=== PATIENT | female | born 1955 | race Caucasian/White ===

== ENCOUNTER 2024-12-09 13:33 | Emergency (ER) | payer MEDICARE, OTHER, SELFPAY ==
--- NOTE | 2024-12-09 13:42 | XRR_ITS ---
PROCEDURE INFORMATION: Exam: XR Right Foot Exam date and time: 12/09/2024 2:22 PM Age: 69 years old Clinical indication: Injury or trauma; Other: Not specified; Blunt trauma; Foot; Right TECHNIQUE: Imaging protocol: Radiologic exam of the right foot. Views: 3 or more views. COMPARISON: No relevant prior studies available. FINDINGS: Bones/joints: Acute minimally comminuted and slightly displaced 5th metatarsal distal diaphyseal fracture. Subacute to chronic healed fracture deformity through the base of the 5th metatarsal. Soft tissues: Mild lateral forefoot soft tissue swelling. XR/XR foot RT min 3V* [id number] IMPRESSION: Acute minimally comminuted and slightly displaced 5th metatarsal distal diaphyseal fracture.
[2024-12-09 13:49] VITALS: BP 130/71; PULSE 75; RESP 17; TEMP 36.8; O2SAT 96; BMI 19.8
--- NOTE | 2024-12-09 14:13 | W.ED.EXTPRO ---
HPI - Extremity Problem General: Chief complaint: Extremity Injury, Lower Stated complaint: R foot pain Time Seen by Provider: 12/09/24 14:11 Source: patient Mode of arrival: ambulatory Limitations: no limitations History of Present Illness: 69-year-old female who states that she had a boat axle fall on her right foot 2 hours ago. States she has pain over the lateral portion of her right foot where it hit her. Pain is worse with ambulation improved with rest denies any other injuries denies ankle pain she rates her pain a 7 on 10 currently Related Data Previous Rx's ?Medication ?Instructions ?Recorded hydrocodone 5 mg-acetaminophen 325 1 tab PO Q6H PRN pain #14 tabs 12/09/24 mg tablet Allergies Allergy/AdvReac Type Severity Reaction Status Date / Time No Known Allergies Allergy Verified 12/09/24 13:51 Review of Systems Musc: Reports: extremity pain Physical Exam Const: COMMON NORMALS: no acute distress, patient oriented x3 and healthy appearing HENMT: COMMON NORMALS: normocephalic and atraumatic HEAD & SCALP: normocephalic and atraumatic Eye: COMMON NORMALS: conjunctivae normal CONJUNCTIVA: Yes conjunctivae normal Neck/C-Spine: COMMON NORMALS: full ROM and supple Chest: COMMONS NORMALS: normal inspection of the chest Resp: COMMON NORMALS: normal respiratory effort Cardio: COMMON NORMALS: regular rate RATE: regular rate Extremity: COMMON NORMALS: full ROM NARRATIVE EXTREMITY EXAM: Tenderness over right lateral foot no obvious deformity Neuro: COMMON NORMALS: patient oriented x3, moves all extremities and no focal motor deficits Psych: COMMON NORMALS: mental status grossly normal, Normal thought process present and cooperative THOUGHT PROCESS: Normal thought process present Skin: COMMON NORMALS: no rashes or lesions noted and no wounds GENERAL SKIN EXAM: no rashes or lesions noted Course Vital Signs: Vital signs: Vital Signs Temperature 98.3 F 12/09/24 13:49 Pulse Rate 75 12/09/24 13:49 Respiratory Rate 17 12/09/24 13:49 Blood Pressure 130/71 12/09/24 13:49 Pulse Oximetry 96 12/09/24 13:49 Oxygen Delivery Me thod Room Air 12/09/24 13:49 MDM - Extremity (Nontraumatic) Medical Decision Making Patient presents here with fracture of the fifth metatarsal after having a boat axle dropped on her foot. I did interpret the x-ray myself it is pending final review of radiologist at this time but does show 1/[address] metat[address] fracture we will place her in a posterior short leg splint we will get her crutches she is to be nonweightbearing we will set follow-up with the chief dog license inspector Dr. Chakraborty will prescribe her pain meds for home she is stable for discharge at this time I did go over all this with her she understands agrees to plan Medical Records I reviewed the patient's medical records. XR interpretation done by ED provider, pending radiology final review ED provider radiology interpretation(s): X-ray right foot fifth metatarsal fracture Discharge Plan Discharge Patient Disposition: Home Clinical Impression: Closed fracture of fifth metatarsal bone Condition: Stable Prescriptions: New hydrocodone-acetaminophen 5-325 mg tablet 1 tab PO Q6H PRN (Reason: pain) Qty: 14 0RF Discharge Orders: Discharge ED (Routine); Ordered 12/09/24 Ordered By: Rissa Sage Referrals: De Quiroga MD [Primary Care Provider, Family Practice] Ricardo Chakraborty DPM [Physician, Podiatry] - 4-7 days Discharge Diet: Advance as tolerated Discharge Activity: Limit activity as instructed and Use walker/crutches as instructed Patient Instructions: Foot Fracture in Adults (ED), Opioid Safety Print Language: British Coding Level of Care Code ED Gumming Machine Operator for Lorenzo Parry
[2024-12-09] MEDS: HYDROcodone-acetaminophen 5-325 mg Tablet 1 TAB PO (14:20)
--- OUTSIDE RECORDS SUMMARY | 2024-12-09 14:30 | XMS_ITS | Encounter Summary ---
Author Organization [facility] Address [address] [place] [address] Care Team Providers Care Producer Arborist Manager Name Role Phone Unavailable Primary Care Provider Unavailabl e Encounter Details Date Type Department Care Team (Latest Contact Info) Description 11/24/[address] 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
--- OUTSIDE RECORDS SUMMARY | 2024-12-09 14:30 | XMS_ITS | Encounter Summary ---
Author Organization [facility] Address [address] [place] [address] Care Team Providers Care Process Mechanic Name Role Phone Unavailable Primary Care Provider Unavailabl e Encounter Details Date Type Department Care Team (Latest Contact Info) Description 10/20/2002 Outpatient Historical [facility] Medicine [address] [phone] Marika Gomez MD [address] [place] [phone] SPRAIN NOS (Primary Dx) Social History Tobacco Use Types Packs/Day Years Used Date Smoking Tobacco: Never Assessed Comments Unknown Sex and Gender Information Value Date Recorded Sex Assigned at Not on file 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
--- OUTSIDE RECORDS SUMMARY | 2024-12-09 14:30 | XMS_ITS | Clinical Summary ---
Author Organization [facility] Address [address] [place] [address] Phone Care Team Providers Care Machine Icer Name Role Phone Annita Saul MD Primary Care Provider Allergies Active Allergy Reactions Criticality Noted Date Comments Morphine Other 11/12/2001 Hypotension- think they gave me too much Medications alendronate (Fosamax) 70 mg tablet Take 70 mg by mouth every 7 (seven) days. On sundays 4 Active levothyroxine (Synthroid, Levoxyl) 50 mcg tablet Take 50 mcg by mouth 1 (one) time each day. 4 Active traZODone (Desyrel) 50 mg tablet Take 50 mg by mouth at night if needed for sleep. 4 Active sertraline (Zoloft) 50 mg tablet Take 50 mg by mouth 1 (one) time each day if needed (anxiety/depre ssion). 4 Active diclofenac (Voltaren) 1 % topical gel Apply 2 g topically 2 (two) times a day. 100 g 3 4 Active Active Problems Problem Noted Date Diagnosed Date Trigger finger, right index finger 2023 Trigger ring finger of right hand 2023 Right hand pain 2023 Family History Medical History Relation Comments Cancer Brother 1 Lung cancer Brother 1 Cancer Brother 2 Cancer Father Heart disease Father Lung cancer Father Cancer Mother Ovarian cancer Mother Diabetes Neg Hx Malig Hyperthermia Neg Hx Pseudochol deficiency Neg Hx Stroke Neg Hx Relation Status Comments Brother 1 Brother 2 Father Mother Social History Tobacco Use Types Packs/Day Years Used Date Smoking Tobacco: Never Smokeless Tobacco: Never Tobacco Cessation:Counseling Given: Not Answered Alcohol Use Standard Drinks/Week Comments Never 0 (1 standard drink = 0.6 oz pur e alcohol) PHQ-2 Answer Date Recorded Patient Health Questionnaire-2 Score 0 12/12/2023 [facility] - Mental Health Answer Date Recorde d Little interest or pleasure in doing things Not at all 12/12/2023 Feeling down, depressed, or hopeless Not at all 12/12/2023 Feeling of Stress Not on file 12/12/2023 Comments Unknown Sex and Gender Information Value Date Recorded Sex Assigned at Not on file Legal Sex Female 11:55 AM CDT Gender Identity Not on file Sexual Orientation Not on file Last Filed Vital Signs Vital Sign Reading Time Taken Comments Blood Pressure 129/73 12/12/2023 9:14 AM CDT Pulse 73 12/12/2023 9:14 AM CDT Temperature 36.6 C (97.8 F) 12/12/2023 9:14 AM CDT Respiratory Rate 15 10/30/2023 10:1 5 AM CDT Oxygen Saturation 95% 12/12/2023 9:14 AM CDT Inhaled Oxygen Concentration - - Weight 46.2 kg (101 lb 12.8 oz) 12/12/2023 9:14 AM CDT Height 149.9 cm (4' 11 ) 12/12/2023 9:14 AM CDT Body Mass Index 20.56 12/12/2023 9:14 AM CDT Plan of Treatment Health Maintenance Due Date Last Done Comments CT Colonography 1954 Colonoscopy 1954 Colorectal Cancer Screening 1954 FIT-DNA 1954 FIT 1954 FOBT 1954 Sigmoidoscopy 1954 MMR Vaccines (1 of 1 - Standard series) 10/19/1955 Varicella Vaccines (1 of 2 - 13+ 2-dose series) 10/19/1967 Social Drivers of Health (SDoH) 1972 DTaP,Tdap,and Td Vaccines (2 - Tdap) 07/20/1999 06/22/1999 Zoster Vaccines (1 of 2) 2004 Mammogram 05/20/2010 05/20/2009 Medicare Initial AWV [id number] 08/26/2024 Complete Fall Risk Assessment 09/11/2024 09/12/2023, 09/12/2023, 09/12/2023, Additional history exists COVID-19 Vaccine ( - 2023- season) 2024 Influenza Vaccine (#1) 2024 11/10/2021 Depression Screening 12/12/2024 12/12/2023 RSV Vaccines (1 - 1-dose 75+ series) 2029 Pneumococcal Vaccine: 50+ Years Completed 03/17/2022 Pneumococcal Vaccine Aged Out 03/17/2022 No long er eligible based on patient's age to complete this topic HIB Vaccines Aged Out No longer eligi ble based on patient's age to complete this topic HPV Vaccines Aged Out No longer eligi ble based on patient's age to complete this topic Hepatitis A Vaccines Aged Out No long er eligible based on patient's age to complete this topic Hepatitis B Vaccines Aged Out No long er eligible based on patient's age to complete this topic IPV Vaccines Aged Out No longer eligi ble based on patient's age to complete this topic Meningococcal B Vaccine Aged Out No l onger eligible based on patient's age to complete this topic Meningococcal Vaccine Aged Out No mandi arlin eligible based on patient's age to complete this topic Rotavirus Vaccines Aged Out No longer eligible based on patient's age to complete this topic Insurance MEDICARE [employer] Advance Directives For more information, please contact: [phone] (7:30 AM - 5PM [facility], 7 days a week) * Full Code (Latest Code Status on File) Date Activated Date Inactivated Comments 10/30/2023 8:06 AM 10/30/2023 12:34 PM Care Teams Machine Icer Relationship Specialty Start Date End Date Annita Saul MD [address] [place] [address] PCP - General Family Medicine 10/16/23
--- OUTSIDE RECORDS SUMMARY | 2024-12-09 14:30 | XMS_ITS | Encounter Summary ---
Author Organization [facility] Address [address] [place] [address] Care Team Providers Care New Autos Delivery Driver Name Role Phone Unavailable Primary Care Provider Unavailabl e Encounter Details Date Type Department Care Team (Latest Contact Info) Description 12/24/2001 Outpatient Historical [facility] Medicine [address] [phone] Marika Gomez MD [address] [place] [phone] ENDOCRINE DISORDER NOS (Primary Dx) Social History Tobacco Use Types Packs/Day Years Used Date Smoking Tobacco: Never Assessed Comments Unknown Sex and Gender Information Value Date Recorded Sex Assigned at Not on file 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
--- OUTSIDE RECORDS SUMMARY | 2024-12-09 14:30 | XMS_ITS | Encounter Summary ---
Author Organization [facility] Address [address] [place] [address] Care Team Providers Care Nutrition Services Associate Name Role Phone Unavailable Primary Care Provider Unavailabl e Encounter Details Date Type Department Care Team (Latest Contact Info) Description 10/31/[address] 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
--- OUTSIDE RECORDS SUMMARY | 2024-12-09 14:30 | XMS_ITS | Encounter Summary ---
Author Organization [facility] Address [address] [place] [address] Care Team Providers Care Inspector Machined Parts Name Role Phone Unavailable Primary Care Provider Unavailabl e Encounter Details Date Type Department Care Team (Latest Contact Info) Description 07/14/[address] 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
--- OUTSIDE RECORDS SUMMARY | 2024-12-09 14:30 | XMS_ITS | Encounter Summary ---
Author Organization [facility] Address [address] [place] [address] Care Team Providers Care Brick Kiln Worker Name Role Phone Unavailable Primary Care Provider Unavailabl e Encounter Details Date Type Department Care Team (Latest Contact Info) Description 06/05/2002 Outpatient Historical [facility] Medicine[address] [phone] Ricardo Magaña MD [address] [place] [address] SPRAIN OF ANKLE NOS (Primary Dx) Social History Tobacco Use Types Packs/Day Years Used Date Smoking Tobacco: Never Assessed Comments Unknown Sex and Gender Information Value Date Recorded Sex Assigned at Not on file 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
--- OUTSIDE RECORDS SUMMARY | 2024-12-09 14:30 | XMS_ITS | Encounter Summary ---
Author Organization [facility] Address [address] [place] [address] Care Team Providers Care Steamboat Inspector Name Role Phone Unavailable Primary Care Provider Unavailabl e Encounter Details Date Type Department Care Team (Latest Contact Info) Description 06/22/1999 Outpatient Historical [facility] Medicine[address] [phone] De Quiroga MD [address] [phone] Abn Pap Smear-Cervix (Primary Dx); Need for prophylactic vaccination with tetanus toxoid alone Social History Tobacco Use Types Packs/Day Years Used Date Smoking Tobacco: Never Assessed Comments Unknown Sex and Gender Information Value Date Recorded Sex Assigned at Not on file 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
--- OUTSIDE RECORDS SUMMARY | 2024-12-09 14:30 | XMS_ITS | Encounter Summary ---
Author Organization [facility] Address [address] [place] [address] Care Team Providers Care Quality Lab Technician Name Role Phone Unavailable Primary Care Provider Unavailabl e Encounter Details Date Type Department Care Team (Latest Contact Info) Description 12/31/2006 Outpatient Historical [facility] Medicine [address] [phone] Marika Gomez MD [address] [place] [phone] Unspecified Endocrine Disorder (Primary Dx); Unspecified Osteoporosis; Dysthymic Disorder Social History Tobacco Use Types Packs/Day Years Used Date Smoking Tobacco: Never Assessed Comments Unknown Sex and Gender Information Value Date Recorded Sex Assigned at Not on file 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
--- OUTSIDE RECORDS SUMMARY | 2024-12-09 14:30 | XMS_ITS | Clinical Summary ---
Author Organization [facility] Address [address] Guajardo: [place] [address] Care Team Providers Care Paint Line Operator Name Role Phone De Quiroga MD Primary Care Provider [phone] Allergies Active Allergy Reactions Criticality Noted Date Comments Morphine Other (See Comments) 11/12/2001 Hypotension- think they gave me too much Medications sertraline (ZOLOFT) 50 mg tablet Take 1 Tablet (50 mg) by mouth daily. 90 Tablet 3 03/21/2024 Active traZODone (DESYREL) 50 mg tablet Take 1 Tablet (50 mg) by mouth 1 time daily as needed for Insomnia. 90 Tablet 3 03/21/2024 Active levothyroxine 50 mcg tablet Take 1 Tablet (50 mcg) by mouth daily. 90 Tablet 3 03/21/2024 Active alendronate (FOSAMAX) 70 mg tablet Take 1 Tablet (70 mg) by mouth every 7 days. 12 Tablet 4 03/21/2024 Active diclofenac sodium (VOLTAREN) 1 % gel Apply 2 Grams to affected area 2 times daily. 100 Gram 3 03/21/2024 Active diclofenac sodium (VOLTAREN) 75 mg Tablet, Delayed Release (E.C.)Indicatio ns:Closed displaced fracture of fifth metatarsal bone of right foot, initial encounter Take 1 Tablet (75 mg) by mouth 2 times daily. 60 Tablet 05/02/2024 Active cholecalciferol , vitamin D3, 5,000 unitIndications :Closed displaced fracture of fifth metatarsal bone of right foot, initial encounter Take 1 Tablet (5,000 Units) by mouth daily. 60 Tablet 05/02/2024 Active Active Problems No known active problems Encounters Date Type Department Care Team Description 11/11/2024 External Device Data STL ABSTRACTION Provider, Abstract 11/11/2024 External Device Data STL ABSTRACTION Provider, Abstract 10/07/2024 External Device Data STL ABSTRACTION Provider, Abstract 10/07/2024 External Device Data STL ABSTRACTION Provider, Abstract 10/07/2024 External Device Data STL ABSTRACTION Provider, Abstract 09/30/2024 External Device Data STL ABSTRACTION Provider, Abstract 09/30/2024 External Device Data STL ABSTRACTION Provider, Abstract 09/10/2024 External Device Data STL ABSTRACTION Provider, Abstract 09/09/2024 External Device Data STL ABSTRACTION Provider, Abstract from Last 3 Months Immunizations Immunization Administration Dates Next Due (ADACEL/BOOSTRIX)(10 YR UP) TDAP VACCINE, 0.5ML, IM 06/07/2023 (PREVNAR 20)(6 WKS UP) PNEUM OCOCCAL CONJUGATE VACCINE 20-VALENT (PCV20), POLYSACCHARIDE [id number] CONJUGATE, ADJUVANT 0.5 ML (PF) IM 03/17/2022 (SHINGRIX)(50 YRS UP) ZOSTER VACCINE RECOMBINANT, 0.5 ML, IM 08/13/2023,06/07/2023 Dt Dtp Dtap Vaccine 06/22/1999 Influenza Seasonal Unspecifi ed Formulation IM 11/27/2023,01/04/2023,11/10/2021 Family History Medical History Relation Name Comments Lung Cancer Brother Lung Cancer Father Ovarian Cancer Mother Relation Name Status Comments Brother Father Mother Social History Tobacco Use Types Packs/Day Years Used Date Smoking Tobacco: Never Smokeless Tobacco: Never Alcohol Use Standard Drinks/Week Comments Never 0 (1 standard drink = 0.6 oz pur e alcohol) Comments Unknown Sex and Gender Information Value Date Recorded Sex Assigned at Female 08/06/2024 9:10 AM CDT Legal Sex Female 4:56 PM PROJECT PRODUCT MANAGER Gender Identity Female 08/06/2024 9:10 AM CDT Sexual Orientation Not on file Last Filed Vital Signs Vital Sign Reading Time Taken Comments Blood Pressure 122/68 06/02/2024 10:14 AM CDT Pulse 64 03/21/2024 9:54 AM PROJECT PRODUCT MANAGER Temperature 36.7 C (98 F) 03/21/2024 9:54 AM PROJECT PRODUCT MANAGER Respiratory Rate 16 03/21/2024 9:54 AM PROJECT PRODUCT MANAGER Oxygen Saturation 94% 03/21/2024 9:54 AM PROJECT PRODUCT MANAGER Inhaled Oxygen Concentration - - Weight 46.6 kg (102 lb 12.8 oz) 025 10:14 AM CDT Height 149.9 cm (4' 11 ) 06/02/2024 10: 14 AM CDT Body Mass Index 20.76 06/02/2024 10:14 AM CDT Plan of Treatment Upcoming Encounters Date Type Department Care Team (Late st Contact Info) Description 03/27/2025 10:30 AM PROJECT PRODUCT MANAGER Office Visit [facility] [phone] [place] [address] De Quiroga MD [address] [place] [address] Health Maintenance Due Date Last Done Comments FIT/ DNA Q 3 YEARS (AUTO ORDER) 1972 FIT/FOBT Q 1 YEAR (AUTO ORDER) 1972 FLEX SIG/CT COLONOGRAPHY Q 5 YEARS (AUTO ORDER) 1972 FIT-DNA Q 3 years 10/19/1999 FIT/FOBT Q 1 year 10/19/1999 Flex Sig/CT Colonography Q 5 years 10/19/1999 INFLUENZA VACCINE (#1) 2024 4, 01/04/2023, 11/10/2021 BREAST CANCER SCREENING 11/23/2024 11/24/19 24, 11/24/2023, 11/23/2023, Additional history exists Traditional Medicare (ACO) A nnual Wellness Visit 03/22/2025 03/21/2024 OSTEOPOROSIS SCREENING 04/14/2029 5, 04/14/2024, 07/11/2022, Additional history exists RSV VACCINE (60+ or ) (1 - 1-dose 75+ series) 2029 COLORECTAL CANCER SCREENING (AUTO ORDER) 04/07/2031 04/07/2021, 04/07/2021 COLORECTAL SCREENING 04/07/2031 04/07/2021, 02/10/20 22 Colorectal Cancer Screening (AUTO ORDER) 04/07/2031 Colorectal Cancer Screening 04/07/2031 DTAP/TDAP/TD VACCINES (3 - T d or Tdap) 06/06/2033 06/07/2023, 06/22/1999 PNEUMOCOCCAL VACCINE 50+ YEARS Completed 03/17/2022 ZOSTER VACCINE Completed 08/13/2023, 06/07/2023 Procedures Procedure Name Priority Date/Time Associated Diagnosis Comments XR DEXA BONE DENSITY AXIAL 1 OR MORE SITES Routine 04/14/2024 11:58 AM PROJECT PRODUCT MANAGER Menopause MAMMO SCREEN BILAT W OR WO CAD Routine 11/23/2023 11:05 AM CDT ENDOSCOPY, COLON, SCREENING Routine 04/07/2021 11:45 AM PROJECT PRODUCT MANAGER from Last 3 Months or Most Recently Relevant to Health Maintenance Results * XR DEXA BONE DENSITY AXIAL 1 OR MORE SITES (04/14/2024 11:58 AM PROJECT PRODUCT MANAGER) Anatomical Region Laterality Modality Nuclear Medicine 04/14/2024 11:5 8 AM PROJECT PRODUCT MANAGER Impressions 04/14/2024 12:05 PM PROJECT PRODUCT MANAGER IMPRESSION: Severe osteopenia NOF guidelines recommend consideration of FDA-approved medical therapies in patients with FRAX determined 10-year probabilities of hip/major osteoporosis-related fractures equal or greater than 3%/20% respectively. Consider assessing fracture risk using the FRAX analysis tool for guidance of clinical management available online at www.shef.ac.uk/FRAX/. Enter [employer] for Select DXA and the Femoral Neck BMD value. Narrative 04/14/2024 12:05 PM PROJECT PRODUCT MANAGER DEXA Evaluation of the Lumbar Spine and Left Proximal Femur Reason for Consultation: Osteoporosis screening.Evaluation of bone mineral density. The following absorptiometry data were obtained. The quality of this examination is acceptable with regards to count density, processed images, data display and lack of important artifacts (including but not limited to motion and attenuation artifacts). Comparison: None L1-L4 BMD (g/cm2): 0.899 Adult T-score: -2.3 Left Femoral Neck BMD (g/cm2): 0.746 Adult T-score: -2.1 Left Total Hip BMD (g/cm2): 0.777 Adult T-score: -1.8 N.B. Changes in density of <=0.05 g/cm2 are not statistically significant. Definitions: T-score > -0.99 = Normal T-score -1.00 to -1.49 = mild osteopenia T-score -1.50 to -1.99 = moderate osteopenia T-score -2.00 to -2.49 = severe osteopenia T-score < -2.50 = osteoporosis RECOMMENDATIONS: Normal: Low risk for fracture - f/u in 2 years Mild/Mod osteopenia: Moderate risk for fracture - f/u in 1 year Severe osteopenia: Moderate/high risk for fracture - f/u in 1 year Osteoporosis: High risk for fracture - f/u in 1 year Procedure Note Zach Ervin MD - 04/14/2024 DEXA Evaluation of the Lumbar Spine and Left Proximal Femur Reason for Consultation: Osteoporosis screening.Evaluation of bone mineral density. The following absorptiometry data were obtained. The quality of this examination is acceptable with regards to count density, processed images, data display and lack of important artifacts (including but not limited to motion and attenuation artifacts). Comparison: None L1-L4 BMD (g/cm2): 0.899 Adult T-score: -2.3 Left Femoral Neck BMD (g/cm2): 0.746 Adult T-score: -2.1 Left Total Hip BMD (g/cm2): 0.777 Adult T-score: -1.8 N.B. Changes in density of <=0.05 g/cm2 are not statistically significant. Definitions: T-score > -0.99 = Normal T-score -1.00 to -1.49 = mild osteopenia T-score -1.50 to -1.99 = moderate osteopenia T-score -2.00 to -2.49 = severe osteopenia T-score < -2.50 = osteoporosis RECOMMENDATIONS: Normal: Low risk for fracture - f/u in 2 years Mild/Mod osteopenia: Moderate risk for fracture - f/u in 1 year Severe osteopenia: Moderate/high risk for fracture - f/u in 1 year Osteoporosis: High risk for fracture - f/u in 1 year IMPRESSION: Severe osteopenia NOF guidelines recommend consideration of FDA-approved medical therapies in patients with FRAX determined 10-year probabilities of hip/major osteoporosis-related fractures equal or greater than 3%/20% respectively. Consider assessing fracture risk using the FRAX analysis tool for guidance of clinical management available online at www.shef.ac.uk/FRAX/. Enter [employer] for Select DXA and the Femoral Neck BMD value. us De Quiroga MD DIAGNOSTIC IMAGING ORDERABLES Fi nal Result * MAMMO SCREEN BILAT W OR WO CAD (11/23/2023 11:05 AM CDT) Anatomical Region Laterality Modality Breast Bilateral Mammography us Abstract Provider MAMMO ORDERABLES Edited Result - Final * ENDOSCOPY, COLON, SCREENING (04/07/2021 11:45 AM PROJECT PRODUCT MANAGER) us Abstract Provider GI PROCEDURE ORDERABLES Final Result from Last 3 Months or Most Recently Relevant to Health Maintenance Insurance MEDICARE PART A AND B OLD [employer] SUPP Care Teams Paint Line Operator Relationship Specialty Start Date End Date De Quiroga MD [address] [phone] PCP - General Family Practice 03/21/24
--- OUTSIDE RECORDS SUMMARY | 2024-12-09 14:30 | XMS_ITS | Encounter Summary ---
Author Organization [facility] Address [address] [place] [address] Care Team Providers Care Other Wood Processing Machine Operator Name Role Phone Unavailable Primary Care Provider Unavailabl e Encounter Details Date Type Department Care Team (Latest Contact Info) Description 01/25/2001 Outpatient Historical [facility] Medicine [address] [phone] Marika Gomez MD [address] [place] [phone] ENDOCRINE DISORDER NOS (Primary Dx) Social History Tobacco Use Types Packs/Day Years Used Date Smoking Tobacco: Never Assessed Comments Unknown Sex and Gender Information Value Date Recorded Sex Assigned at Not on file Legal Sex Female 5:14 AM COLLEGE ATHLETIC DIRECTOR Gender Identity Not on file Sexual Orientation Not on file documented as of this encounter Plan of Treatment Not on file documented as of this encounter Visit Diagnoses Diagnosis Unspecified endocrine disorder- Primary documented in this encounter
--- OUTSIDE RECORDS SUMMARY | 2024-12-09 14:30 | XMS_ITS | Encounter Summary ---
Author Organization [facility] Address [address] [place] [address] Care Team Providers Care Trencher Driver Name Role Phone Unavailable Primary Care Provider Unavailabl e Encounter Details Date Type Department Care Team (Latest Contact Info) Description 11/05/2000 Outpatient Historical [facility] Medicine [address] [phone] Marika Gomez MD [address] [place] [phone] Excessive menstruation (Primary Dx); Unspecified disorder of skin and subcutaneous tissue Social History Tobacco Use Types Packs/Day Years Used Date Smoking Tobacco: Never Assessed Comments Unknown Sex and Gender Information Value Date Recorded Sex Assigned at Not on file Legal Sex Female 5:14 AM CONNIE SCRATCHER Gender Identity Not on file Sexual Orientation Not on file documented as of this encounter Plan of Treatment Not on file documented as of this encounter Visit Diagnoses Diagnosis Excessive menstruation- Primary Excessive or frequent menstruation Unspecified disorder of skin and subcutaneous tissue documented in this encounter
--- OUTSIDE RECORDS SUMMARY | 2024-12-09 14:30 | XMS_ITS | Encounter Summary ---
Author Organization [facility] Address [address] [place] [address] Care Team Providers Care Energy Efficiency Finance Manager Name Role Phone Unavailable Primary Care Provider Unavailabl e Encounter Details Date Type Department Care Team (Latest Contact Info) Description 08/18/2002 Outpatient Historical [facility] [address] [place] [phone] De Quiroga MD [address] [address] BENIGN MANASA SKIN LEG (Primary Dx) Social History Tobacco Use Types Packs/Day Years Used Date Smoking Tobacco: Never Assessed Comments Unknown Sex and Gender Information Value Date Recorded Sex Assigned at Not on file Legal Sex Female 5:14 AM PALEOLOGY PROFESSOR Gender Identity Not on file Sexual Orientation Not on file documented as of this encounter Plan of Treatment Not on file documented as of this encounter Visit Diagnoses Diagnosis Benign neoplasm of skin of lower limb, including hip- Primary documented in this encounter
--- OUTSIDE RECORDS SUMMARY | 2024-12-09 14:30 | XMS_ITS | Encounter Summary ---
Author Organization [facility] Address [address] [place] [address] Care Team Providers Care Emergency Medcl Emt Name Role Phone Unavailable Primary Care Provider Unavailabl e Encounter Details Date Type Department Care Team (Latest Contact Info) Description 10/31/2002 Outpatient Historical [facility] Marika Gomez MD [address] [place] [phone] MASTODYNIA (Primary Dx) Social History Tobacco Use Types Packs/Day Years Used Date Smoking Tobacco: Never Assessed Comments Unknown Sex and Gender Information Value Date Recorded Sex Assigned at Not on file Legal Sex Female 5:14 AM AGRICULTURE WORKER Gender Identity Not on file Sexual Orientation Not on file documented as of this encounter Plan of Treatment Not on file documented as of this encounter Visit Diagnoses Diagnosis Mastodynia- Primary documented in this encounter
--- OUTSIDE RECORDS SUMMARY | 2024-12-09 14:30 | XMS_ITS | Clinical Summary ---
Author Organization [facility] Address [address] [facility] [place] [address] Care Team Providers Care Internal Controls Specialist Name Role Phone Unavailable Primary Care Provider Unavailabl e Immunizations Immunization Administration Dates Next Due Dt Dtp Dtap Vaccine 06/22/1999 Social History Tobacco Use Types Packs/Day Years Used Date Smoking Tobacco: Never Assessed Comments Unknown Sex and Gender Information Value Date Recorded Sex Assigned at Not on file Legal Sex Female 5:14 AM CENTER MACHINE SET UP OPERATOR Gender Identity Not on file Sexual Orientation Not on file Plan of Treatment Health Maintenance Due Date Last Done Comments COLORECTAL SCREENING 10/19/1999 Colorectal Cancer Screening 10/19/1999 FIT-DNA Q 3 years 10/19/1999 FIT/FOBT Q 1 year 10/19/1999 Flex Sig/CT Colonography Q 5 years 10/19/1999 PNEUMOCOCCAL VACCINE 50+ YEA RS (1 of 1 - PCV) 2004 ZOSTER VACCINE (1 of 2) 2004 DTAP/TDAP/TD VACCINES (2 - Tdap) 06/21/2009 06/22/19 00 BREAST CANCER SCREENING 05/20/2010 05/20/2009, 03/12 OSTEOPOROSIS SCREENING 10/19/2019 INFLUENZA VACCINE (#1) 2024 RSV VACCINE (60+ or ) (1 - 1-dose 75+ series) 2029 Procedures Procedure Name Priority Date/Time Associated Diagnosis Comments MAMMO SCREENING BILAT Routine 05/20/2009 1:50 PM CDT from Last 3 Months or Most Recently Relevant to Health Maintenance Results * MAMMO SCREENING BILAT (05/20/2009 1:50 PM CDT) Anatomical Region Laterality Modality Breast Bilateral Other us Marika Gomez MD MAMMO ORDERABLES Final Result from Last 3 Months or Most Recently Relevant to Health Maintenance Insurance [employer]
--- OUTSIDE RECORDS SUMMARY | 2024-12-09 14:30 | XMS_ITS | Encounter Summary ---
Author Organization [facility] Address [address] Attn: Epic Prelude [place] [address] Care Team Providers Care Director Of Student Services Name Role Phone Unavailable Primary Care Provider Unavailabl e Encounter Details Date Type Department Care Team (Late st Contact Info) Description 07/23/1999 Outpatient Historical Marika Gomez MD [address] [place] [phone] Social History Tobacco Use Types Packs/Day Years Used Date Smoking Tobacco: Never Assessed Comments Unknown Sex and Gender Information Value Date Recorded Sex Assigned at Not on file Legal Sex Female 5:14 AM BENCH MACHINE OPERATOR Gender Identity Not on file Sexual Orientation Not on file documented as of this encounter Plan of Treatment Not on file documented as of this encounter Visit Diagnoses Not on filedocumented in this encounter
--- OUTSIDE RECORDS SUMMARY | 2024-12-09 14:30 | XMS_ITS | Encounter Summary ---
Author Organization [facility] Address [address] [place] [address] Care Team Providers Care Production Technologist Name Role Phone Unavailable Primary Care Provider Unavailabl e Encounter Details Date Type Department Care Team (Latest Contact Info) Description 07/22/1999 Outpatient Historical [facility] Medicine [address] [phone] Marika Gomez MD [address] [place] [phone] Abn Pap Smear-Cervix (Primary Dx) Social History Tobacco Use Types Packs/Day Years Used Date Smoking Tobacco: Never Assessed Comments Unknown Sex and Gender Information Value Date Recorded Sex Assigned at Not on file Legal Sex Female 5:14 AM FISHER NET Gender Identity Not on file Sexual Orientation Not on file documented as of this encounter Plan of Treatment Not on file documented as of this encounter Visit Diagnoses Diagnosis Abn Pap Smear-Cervix- Primary Abnormal Papanicolaou smear of cervix and cervical HPV documented in this encounter
--- OUTSIDE RECORDS SUMMARY | 2024-12-09 14:31 | XMS_ITS | Encounter Summary ---
Author Organization [facility] Address [address] [place] [address] Care Team Providers Care Sheet Music Salesperson Name Role Phone Unavailable Primary Care Provider Unavailabl e Encounter Details Date Type Department Care Team (Latest Contact Info) Description 02/29/2004 Outpatient Historical [facility] Medicine [address] [phone] Marika Gomez MD [address] [place] [phone] DIZZINESS AND GIDDINESS (Primary Dx); BONE & CARTILAGE DIS NOS Social History Tobacco Use Types Packs/Day Years Used Date Smoking Tobacco: Never Assessed Comments Unknown Sex and Gender Information Value Date Recorded Sex Assigned at Not on file Legal Sex Female 5:14 AM CENTRAL CONTROL ROOM OPERATOR Gender Identity Not on file Sexual Orientation Not on file documented as of this encounter Plan of Treatment Not on file documented as of this encounter Visit Diagnoses Diagnosis Dizziness and giddiness- Primary Disorder of bone and cartilage, unspecified documented in this encounter
--- OUTSIDE RECORDS SUMMARY | 2024-12-09 14:31 | XMS_ITS | Encounter Summary ---
Author Organization [facility] Address [address] [place] [address] Care Team Providers Care Material Expediter Name Role Phone Unavailable Primary Care Provider Unavailabl e Encounter Details Date Type Department Care Team (Latest Contact Info) Description 11/25/2002 Outpatient Historical [facility] Medicine [address] [phone] Marika Gomez MD [address] [place] [phone] Gynecologic examination (Primary Dx) Social History Tobacco Use Types Packs/Day Years Used Date Smoking Tobacco: Never Assessed Comments Unknown Sex and Gender Information Value Date Recorded Sex Assigned at Not on file Legal Sex Female 5:14 AM INFANT CHILDCARE PROVIDER Gender Identity Not on file Sexual Orientation Not on file documented as of this encounter Plan of Treatment Not on file documented as of this encounter Visit Diagnoses Diagnosis Gynecologic examination- Primary Gynecological examination documented in this encounter
--- OUTSIDE RECORDS SUMMARY | 2024-12-09 14:31 | XMS_ITS | Encounter Summary ---
Author Organization [facility] Address [address] [place] [address] Care Team Providers Care Sports Reporter Name Role Phone Unavailable Primary Care Provider Unavailabl e Encounter Details Date Type Department Care Team (Latest Contact Info) Description 04/18/2004 Outpatient Historical [facility] Medicine [address] [phone] Marika Gomez MD [address] [place] [phone] ENDOCRINE DISORDER NOS (Primary Dx) Social History Tobacco Use Types Packs/Day Years Used Date Smoking Tobacco: Never Assessed Comments Unknown Sex and Gender Information Value Date Recorded Sex Assigned at Not on file Legal Sex Female 5:14 AM GENERAL LOT ATTENDANT Gender Identity Not on file Sexual Orientation Not on file documented as of this encounter Plan of Treatment Not on file documented as of this encounter Visit Diagnoses Diagnosis Unspecified endocrine disorder- Primary documented in this encounter
--- OUTSIDE RECORDS SUMMARY | 2024-12-09 14:31 | XMS_ITS | Encounter Summary ---
Author Organization [facility] Address [address] [place] [address] Care Team Providers Care Watch Assembly Instructor Name Role Phone Unavailable Primary Care Provider Unavailabl e Encounter Details Date Type Department Care Team (Latest Contact Info) Description 10/17/2004 Outpatient Historical [facility] Medicine [address] [phone] Marika Gomez MD [address] [place] [phone] ENDOCRINE DISORDER NOS (Primary Dx); DERMATOPHYTOSIS OF NAIL Social History Tobacco Use Types Packs/Day Years Used Date Smoking Tobacco: Never Assessed Comments Unknown Sex and Gender Information Value Date Recorded Sex Assigned at Not on file Legal Sex Female 5:14 AM ELECTRIC STOVE INSTALLER Gender Identity Not on file Sexual Orientation Not on file documented as of this encounter Plan of Treatment Not on file documented as of this encounter Visit Diagnoses Diagnosis Unspecified endocrine disorder- Primary Dermatophytosis of nail documented in this encounter
--- OUTSIDE RECORDS SUMMARY | 2024-12-09 14:31 | XMS_ITS | Encounter Summary ---
Author Organization [facility] Address [address] [place] [address] Care Team Providers Care Still Worker Helper Name Role Phone Unavailable Primary Care Provider Unavailabl e Encounter Details Date Type Department Care Team (Latest Contact Info) Description 12/04/2003 Outpatient Historical [facility] Medicine [address] [phone] Marika Gomez MD [address] [place] [phone] BONE & CARTILAGE DIS NOS (Primary Dx); ENDOCRINE DISORDER NOS Social History Tobacco Use Types Packs/Day Years Used Date Smoking Tobacco: Never Assessed Comments Unknown Sex and Gender Information Value Date Recorded Sex Assigned at Not on file Legal Sex Female 5:14 AM COMBINATION PRESSER Gender Identity Not on file Sexual Orientation Not on file documented as of this encounter Plan of Treatment Not on file documented as of this encounter Visit Diagnoses Diagnosis Disorder of bone and cartilage, unspecified- Primary Unspecified endocrine disorder documented in this encounter
--- OUTSIDE RECORDS SUMMARY | 2024-12-09 14:31 | XMS_ITS | Encounter Summary ---
Author Organization [facility] Address [address] [place] [address] Care Team Providers Care Pencil Sorter Name Role Phone Unavailable Primary Care Provider Unavailabl e Encounter Details Date Type Department Care Team (Latest Contact Info) Description 01/17/2005 Outpatient Historical [facility] Medicine [address] [id number] Marika Gomez MD [address] [place] [id number] ENDOCRINE DISORDER NOS (Primary Dx) Social History Tobacco Use Types Packs/Day Years Used Date Smoking Tobacco: Never Assessed Comments Unknown Sex and Gender Information Value Date Recorded Sex Assigned at Not on file Legal Sex Female 5:14 AM [employer] Gender Identity Not on file Sexual Orientation Not on file documented as of this encounter Plan of Treatment Not on file documented as of this encounter Visit Diagnoses Diagnosis Unspecified endocrine disorder- Primary documented in this encounter
--- NOTE | 2024-12-11 07:22 | DCPLANNER ---
messaged podiatry for er f/u
== END 2024-12-09 14:59 | disposition home or self-care (01) ==
PROVIDERS: Emergency Provider Emergency Medicine; PCP Family Medicine
DX: S92.351A Displaced fracture of fifth metatarsal bone, right foot, initial encounter for closed fracture (principal); W20.8XXA Other cause of strike by thrown, projected or falling object, initial encounter
CPT/HCPCS: 73630; 99283; E0114; J9999